=== PATIENT | male | born 1985 | race Caucasian/White ===

== ENCOUNTER 2017-01-01 22:48 | Inpatient (IN) | payer BC ==
[~2017-01-01] VITALS: Ht 175.3 cm; Wt 70.8 kg
--- NOTE | ~2017-01-01 | HP ---
Unit #: [id number] #: [id number] Patient: FALLON MARINA [id number] [address] [place], [place] [address] [id number] I MR#: [id number] NAME: FALLON MARINA. ROOM: 305 Age: 31 Sex: M Admission Date: 01/02/2017 : 1985 Attending Physician: Kathi Monge M.D. Primary Care Physician: No Primary Care Physician HISTORY AND PHYSICAL CHIEF COMPLAINT Chief complaint on presentation to the other facility is profound fatigueness. REASON FOR TRANSFER Chemotherapy. HISTORY OF PRESENT ILLNESS This is a very pleasant 31-year-old male with no past medical history prior to this admission, who presented to the emergency room at [facility] with profound fatigueness and hemoglobin of 5. Patient underwent a bone marrow biopsy that was consistent with T-cell lymphoma, so patient was transferred to our facility for chemotherapy. Patient denied any fever, chills, or night sweats. He is coughing mainly at night but it is very minimum. He denied any chest pain, nausea, vomiting, or diarrhea. He still has some tenderness and discomfort from the bone marrow biopsy, otherwise he is asymptomatic. His heart rate sometimes gets tachycardic, but he related that to anxiety and part of it probably was from anemia. PAST MEDICAL HISTORY T-cell lymphoma. PAST SURGICAL HISTORY Bone marrow biopsy. FAMILY HISTORY None. SOCIAL HISTORY Patient drinks alcohol socially. He is currently a smoker, but he quit a couple weeks ago. No history of drug abuse. ALLERGIES Zosyn. REVIEW OF SYSTEMS A 12-point review of system was obtained and was negative except for what was mentioned in the HPI. PHYSICAL EXAMINATION GENERAL: The patient is in no acute distress. VITAL SIGNS: Heart rate 93, blood pressure 112/62, respiratory rate 22, O2 saturation 98% on room air. Unit #: [id number] #: [id number] Patient: FALLON MARINA HEENT: Atraumatic, normocephalic. PERRLA. EOMI. NECK: Supple. No JVD. No lymphadenopathy. CHEST: Clear to auscultation bilaterally. HEART: S1, S2. No murmur, gallops, or rubs. ABDOMEN: Soft, nontender. Bowel sounds are positive. No hepatosplenomegaly. EXTREMITIES: No edema or cyanosis. SKIN: No rashes. CENTRAL NERVOUS SYSTEM: Awake, alert, oriented x3. No focal motor/sensory deficits. DIAGNOSTIC STUDIES LABORATORY: Creatinine 0.7, sodium 133, chloride 99, glucose 124. White blood count 5.7, hemoglobin 8.3, platelets 83,000. ASSESSMENT 1. T-cell lymphoma. 2. Thrombocytopenia. 3. Acute anemia due to bone marrow underproduction. 4. Smoking. 5. Anxiety. 6. Hyponatremia. PLAN 1. The patient will be watched at [facility] for the next five days for the aggressive course of chemotherapy for T-cell lymphoma. 2. Gentle IV hydration while on chemotherapy. 3. Will discontinue tele and watch closely. 4. Electrolyte replacement. 5. Out of bed to chair and ambulation. 6. Blood transfusion as needed. I would like to thank Dr. Sun for allowing us to be part of this patient's care. Dictated by Kyaw Frazier TD: 01/02/2017 10:43 JOB #: [id number] HISTORY AND PHYSICAL Page 1 of 1 X BESSIE BOLANOS MD X HISTORY AND PHYSICAL
--- NOTE | ~2017-01-01 | CR72 ---
[facility] A Service of [facility] & [facility] RADIOLOGY TEXT RESULTS PATIENT: FALLON MARINA LOCATION: [facility] 305- : 85 UNIT #: [id number] AGE: [address]: Kathi Monge MD SEX: M ORDER DR: [id number] [facility] [address]. [place], [place] [address] [id number] I MR#: [id number] Acc #: [id number] NAME: FALLON MARINA : 1985 SEX: M STUDY DATE/TIME: 01/02/2017 15:45 UNIT: [address] ROOM: [facility] STUDY DESCRIPTION: CR Chest Single View Portable Attending Physician: Kathi Monge M.D. Ordering Physician: Blayne Griffith M.D. Primary Care Physician: Primary Care Physician No MEDICAL IMAGING REPORT This report is preliminary unless electronic signature is present EXAM Portable chest HISTORY Shortness of air with activity, symptoms began 5 days ago. History of lymphoma. COMPARISON 12/28/2016 FINDINGS Portable view of the chest demonstrates an indwelling venous access port overlying the left chest, distal tip mid SVC. No focal airspace disease or effusions. No infiltrates. Heart, mediastinum, great vessels and bony thorax appear normal. Overall, no acute findings. Dictated by... Sarita Villa M.D. THIS IS AN ELECTRONICALLY VERIFIED REPORT Sarita Villa M.D. at 01/04/2017 8:06 AM MARIUM/gabi TD: 01/03/2017 00:17 JOB #: [id number] MEDICAL IMAGING REPORT Page 1 of 1 COPY
[2017-01-01] MEDS ORDERED: HYDROXYZINE HCL25 M1 PO (23:41)
[2017-01-01] MEDS ORDERED: DEPO-MEDRO40 MG/1 ML (23:43)
[2017-01-02 04:55] LABS: HEMATOCRIT 22.9 % (38.0-50.0); HEMOGLOBIN 8.3 gm/dL (13.0-16.0); MEAN CELL VOLUME 90.4 FL (83-96); MEAN CORPUSCULAR HEMOGLOBIN 32.9 PG (28-34); MEAN CORPUSCULAR HGB CONC 36.3 g/dL (30-36); MEAN PLATELET VOLUME 8.5 FL (6.5-11.5); RED BLOOD COUNT 2.53 X10e (3.90-5.60); RED CELL DISTRIBUTION WIDTH 13.7 % (11.0-15.5); WHITE BLOOD COUNT 5.7 X10e3 (4.0-10.5)
[2017-01-02 05:42] LABS: BUN/CREATININE RATIO 27.14; CALCIUM SERUM 8.6 mg/dL (8.4-10.2); CREATININE SERUM 0.7 mg/dL (0.6-1.4); GLOM FILT RATE Estimated 125.8 mL/min (>60); POTASSIUM 4.5 mmol/L (3.5-5.1)
[2017-01-03 07:00] LABS: BILIRUBIN,TOTAL 0.7 mg/dL (0.2-2.0); BUN/CREATININE RATIO 28.33; CALCIUM SERUM 8.1 mg/dL (8.4-10.2); CREATININE SERUM 0.6 mg/dL (0.6-1.4); MAGNESIUM 1.7 mg/dL (1.6-3.0); POTASSIUM 4.3 mmol/L (3.5-5.1); PROTEIN TOTAL SERUM 5.9 g/dL (6.0-8.3)
[2017-01-03 08:02] LABS: HEMATOCRIT 17.3 % (38.0-50.0); MEAN CORPUSCULAR HEMOGLOBIN 33.6 PG (28-34); RED BLOOD COUNT 1.85 X10e (3.90-5.60); WHITE BLOOD COUNT 4.3 X10e3 (4.0-10.5)
[2017-01-03 08:10] LABS: HEMOGLOBIN 6.2 gm/dL (13.0-16.0)
[2017-01-03 08:11] LABS: MEAN CELL VOLUME 93.5 FL (83-96)
[2017-01-03 10:21] LABS: HEMATOCRIT 16.4 % (38.0-50.0); MEAN CELL VOLUME 93.1 FL (83-96); MEAN CORPUSCULAR HEMOGLOBIN 33.7 PG (28-34); MEAN PLATELET VOLUME 8.6 FL (6.5-11.5); RED BLOOD COUNT 1.77 X10e (3.90-5.60); RED CELL DISTRIBUTION WIDTH 13.8 % (11.0-15.5); WHITE BLOOD COUNT 4.6 X10e3 (4.0-10.5)
[2017-01-03 10:29] LABS: MEAN CORPUSCULAR HGB CONC 36.2 g/dL (30-36)
[2017-01-04 05:10] LABS: HEMATOCRIT 20.4 % (38.0-50.0); HEMOGLOBIN 7.3 gm/dL (13.0-16.0); MEAN CORPUSCULAR HEMOGLOBIN 34.4 PG (28-34); MEAN CORPUSCULAR HGB CONC 35.9 g/dL (30-36); MEAN PLATELET VOLUME 8.6 FL (6.5-11.5); RED BLOOD COUNT 2.12 X10e (3.90-5.60); RED CELL DISTRIBUTION WIDTH 14.1 % (11.0-15.5); WHITE BLOOD COUNT 4.5 X10e3 (4.0-10.5)
[2017-01-04 05:26] LABS: BILIRUBIN,TOTAL 1.5 mg/dL (0.2-2.0); CALCIUM SERUM 7.9 mg/dL (8.4-10.2); CREATININE SERUM 0.6 mg/dL (0.6-1.4); MAGNESIUM 2.5 mg/dL (1.6-3.0); POTASSIUM 4.8 mmol/L (3.5-5.1)
[2017-01-05 05:35] LABS: HEMATOCRIT 22.7 % (38.0-50.0); HEMOGLOBIN 7.8 gm/dL (13.0-16.0); MEAN CORPUSCULAR HEMOGLOBIN 29.6 PG (28-34); MEAN CORPUSCULAR HGB CONC 34.3 g/dL (30-36); MEAN PLATELET VOLUME 8.4 FL (6.5-11.5); RED BLOOD COUNT 2.62 X10e (3.90-5.60); RED CELL DISTRIBUTION WIDTH 14.4 % (11.0-15.5); WHITE BLOOD COUNT 4.3 X10e3 (4.0-10.5)
[2017-01-05 05:36] LABS: MEAN CELL VOLUME 86.4 FL (83-96)
[2017-01-05 05:54] LABS: ALBUMIN SERUM 3.1 g/dL (3.5-5.0); BILIRUBIN,TOTAL 0.7 mg/dL (0.2-2.0); BUN/CREATININE RATIO 27.14; CALCIUM SERUM 8.2 mg/dL (8.4-10.2); CREATININE SERUM 0.7 mg/dL (0.6-1.4); GLOM FILT RATE Estimated 125.8 mL/min (>60); POTASSIUM 4.5 mmol/L (3.5-5.1); PROTEIN TOTAL SERUM 6.2 g/dL (6.0-8.3)
[2017-01-06 09:14] LABS: BASOPHIL% 0.4 % (0-2.5); EOSINOPHIL% 0.1 % (0.0-7.0); HEMATOCRIT 19.2 % (38.0-50.0); LYMPHOCYTE# 1.7 X10e3 (1.0-3.5); LYMPHOCYTE% 42.2 % (17.0-45.0); MEAN CORPUSCULAR HEMOGLOBIN 32.6 PG (28-34); MEAN CORPUSCULAR HGB CONC 35.8 g/dL (30-36); MEAN PLATELET VOLUME 7.8 FL (6.5-11.5); MONOCYTE# 0.1 X10e3 (0-1.0); MONOCYTE% 3.5 % (3.0-12.0); NEUTROPHIL# 2.2 X10e3 (1.5-7.1); NEUTROPHIL% 53.8 % (40-75); PLATELET COUNT 107 X10e3 (140-420); RED CELL DISTRIBUTION WIDTH 13.9 % (11.0-15.5); WHITE BLOOD COUNT 4.1 X10e3 (4.0-10.5)
[2017-01-06 09:17] LABS: HEMOGLOBIN 6.9 gm/dL (13.0-16.0)
[2017-01-06 09:18] LABS: DIFF IND YES; MEAN CELL VOLUME 91.1 FL (83-96)
[2017-01-06 10:50] LABS: MICROCYTOSIS SL; PLATELET ESTIMATE DECREASED (NORMAL)
[2017-01-06 10:51] LABS: ANISOCYTOSIS SL
[2017-01-12] MEDS ORDERED: ZOFRAN PO (12:34)
[2017-01-12] MEDS ORDERED: OXYCODON-ACETA1 EAC1 PO (23:40)
[2017-02-20] MEDS ORDERED: CLOBETASOL PROP30 GM (03:00)
[2017-02-20] MEDS ORDERED: LASIX PO (08:22)
[2017-02-20] MEDS ORDERED: HYDROCODON-ACE1 EAC5 PO (08:23)
[2017-02-20] MEDS ORDERED: FOLIC ACID1 MG PO (12:04)
[2017-02-20] MEDS ORDERED: B-121000 MC1 PO (12:05)
[2017-02-20] MEDS ORDERED: OMEPRAZOLE40 M1 PO (12:34)
[2017-02-20] MEDS ORDERED: AMBIEN PO (14:12)
[2017-02-20] MEDS ORDERED: HYDROXYZINE HCL25 M1 PO (14:15)
[2017-02-20] MEDS ORDERED: XANAX0.5 M1 PO (23:40)
[2017-03-01] MEDS ORDERED: MAGNESIUM250 M1 PO (10:41)
[2017-03-01] MEDS ORDERED: CIPRO PO (10:41)
[2017-03-01] MEDS ORDERED: KCL PO (10:41)
[2017-03-01] MEDS ORDERED: PREDNISONE PO (10:42)
[2017-03-01] MEDS ORDERED: DURAGESIC1 EACH TD (10:43)
[2017-03-01] MEDS ORDERED: ZYLOPRIM PO (10:44)
[2017-03-05] MEDS ORDERED: DURAGESIC1 EAC1 TD (17:03)
== END 2017-01-07 08:47 | disposition home or self-care (01) | DRG 847 ==
LOC: UNDOADMIN 22:48 → C3A PCU 22:48
PROVIDERS: Internal Medicine; Internal Medicine Hematology & Oncology
PROC: 3E01305 Introduction of Other Antineoplastic into Subcutaneous Tissue, Percutaneous Approach (ICD-10-PCS; principal; 2017-01-03)
PROC: 30233N1 Transfusion of Nonautologous Red Blood Cells into Peripheral Vein, Percutaneous Approach (ICD-10-PCS; 2017-01-03)
PROC: 05H333Z Insertion of Infusion Device into Right Innominate Vein, Percutaneous Approach (ICD-10-PCS; 2017-01-03)
PROC: B54MZZA Ultrasonography of Right Upper Extremity Veins, Guidance (ICD-10-PCS; 2017-01-03)
DX: Z51.11 Encounter for antineoplastic chemotherapy (principal); C84.40 Peripheral T-cell lymphoma, not elsewhere classified, unspecified site; D69.6 Thrombocytopenia, unspecified; E87.1 Hypo-osmolality and hyponatremia; D58.9 Hereditary hemolytic anemia, unspecified; F17.210 Nicotine dependence, cigarettes, uncomplicated; F41.9 Anxiety disorder, unspecified
CPT/HCPCS: 71010; 80048; 80053; 82947; 83735; 85025; 85027; 86850; 86870; 86880; 86885; 86900; 86901; 86905; 86922; 86978; J1100; J1200; J1642; J1815; J1940; J2405; J2469; J2920; J3475; J9000; J9070; J9181; J9370; P9016

== ENCOUNTER → 2017-01-07 | Outpatient (CLI) | payer BC ==
[~2017-01-07] MED LIST: AMBIEN PO; B-121000 MC1 PO; CIPRO PO; CLOBETASOL PROP30 GM; DELTASONE20 MG PO; DEPO-MEDRO40 MG/1 ML; DURAGESIC1 EAC1 TD; DURAGESIC1 EACH TD; FOLIC ACID1 MG PO; HYDROCODON-ACE1 EAC5 PO; HYDROXYZINE HCL25 M1 PO; KCL PO; LASIX PO; LASIX20 MG PO; LEVAQUIN750 MG PO; MAGNESIUM200 MG PO; MAGNESIUM250 M1 PO; OMEPRAZOLE40 M1 PO; ONDANSETRON ODT8 MG; OXYCODON-ACETA1 EAC1 PO; PREDNISONE PO; XANAX0.5 M1 PO; ZOFRAN PO; ZYLOPRIM PO
== END | disposition home or self-care (01) ==
LOC: CSSDAY 08:48
DX: Z51.12 Encounter for antineoplastic immunotherapy (principal); C84.40 Peripheral T-cell lymphoma, not elsewhere classified, unspecified site; D69.6 Thrombocytopenia, unspecified
CPT/HCPCS: 96377; J2505

== ENCOUNTER → 2017-01-12 | Outpatient (CLI) | payer BC | END | disposition home or self-care (01) | LOC: CSSDAY 11:37 → CPACUOF 11:52 → CSSDAY 15:00 | DX: D64.9 Anemia, unspecified (principal); C85.90 Non-Hodgkin lymphoma, unspecified, unspecified site | CPT/HCPCS: 36415; 36430; 86850; 86885; 86900; 86901; 86922; J1200; J1642; J1940; P9016 ==

== ENCOUNTER → 2017-01-18 | Outpatient (CLI) | payer BC | END | disposition home or self-care (01) | LOC: CLAB 14:43 | DX: D64.9 Anemia, unspecified (principal) | CPT/HCPCS: 36415; 86850; 86860; 86870; 86880; 86885; 86900; 86901; 86922; 86970; 86978 ==

== ENCOUNTER → 2017-01-19 | Outpatient (CLI) | payer BC ==
--- NOTE | ~2017-01-19 | DS ---
Unit #: [id number] #: [id number] Patient: FALLON MARINA JR [id number] [address] [address] [id number] O MR#: [id number] NAME: FALLON MARINA JR ROOM: Age: Sex: M Admission Date: 01/19/2017 : 1985 Discharge Date: Attending Physician: Hollie Sun M.D., Ph.D. Referring Physician: Marta Sun M.D. Primary Care Physician: Hollie Sun M.D., Ph.D. DISCHARGE SUMMARY DISCHARGE DIAGNOSES 1. Lymphoma. 2. Anemia. 3. Thrombocytopenia. The patient was admitted for chemotherapy. Has T-cell lymphoma, doing well. Will be discharged home as per hematology recommendation. VITAL SIGNS: Temperature 98, pulse 87, respirations 12, blood pressure 122/75. NEUROLOGICAL: Awake, alert, oriented. No neuro deficit. HEENT: PERRLA. NECK: Supple. No JVD. CHEST: Bilateral air entry, bilateral mild rhonchi. GI: Nontender, soft. Bowel sounds positive. EXTREMITIES: No edema. SKIN: No rashes, no ulcers. LYMPHATIC: No lymphadenopathy. DIAGNOSTIC STUDIES Labs and imaging has been reviewed. DISCHARGE MEDICATIONS As per Med Rec. Hemodynamically stable. Follow with hematology. Dictated by... Kyaw Berg/ania TD: 01/20/2017 12:10 JOB #: [id number] Unit #: [id number] #: [id number] Patient: FALLON MARINA JR DISCHARGE SUMMARY Page 1 of 1 X Kathi Monge MD X DISCHARGE SUMMARY
== END | disposition home or self-care (01) ==
LOC: CSSDAY 07:20
DX: D64.9 Anemia, unspecified (principal); C85.90 Non-Hodgkin lymphoma, unspecified, unspecified site; Z79.899 Other long term (current) drug therapy
CPT/HCPCS: 36430; J1200; J1642; J1940; J2405; P9016

== ENCOUNTER 2017-01-24 21:43 | Inpatient (IN) | payer BC ==
[~2017-01-24] VITALS: Ht 177.8 cm; Wt 75.0 kg
--- NOTE | ~2017-01-24 | OR ---
Unit #: [id number] #: [id number] Patient: FALLON MARINA JR [id number] [address] [place], [place] [address] [id number] I MR#: [id number] NAME: FALLON MARINA JR ROOM: [facility] Date of Procedure: 01/26/2017 Admission Date: 01/25/2017 Surgeon: Bessie Gutiérrez M.D. : 1985 Attending Physician: Kathi Monge M.D. Primary Care Physician: Hollie Sun M.D., Ph.D. PROCEDURE OPERATIVE NOTE PREOPERATIVE DIAGNOSIS T-cell lymphoma with pneumonia. POSTOPERATIVE DIAGNOSIS T-cell lymphoma with pneumonia. PREMEDICATIONS 1. Fentanyl 100 mcg IV x1. 2. Versed 9 mg IV. 3. Benadryl 50 mg IV. 4. Phenergan 25 mg IV. COMPLICATIONS None. DESCRIPTION OF PROCEDURE An informed consent was obtained from the patient himself after explaining the benefit and risks of this procedure. The patient was prepped and positioned in a proper way in the endoscopy unit. He was premedicated first with fentanyl, Versed, and after numbing his throat with lidocaine spray, a bronchoscope was advanced through the oral cavity and at the level of the vocal cords 2% lidocaine was instilled x6 mL. Then, the bronchoscope was advanced through the vocal cord into the trachea which appeared normal with no masses or excessive secretions. However, at the level of the lupe thin layers of irritated mucosa was noted at the lupe into the right main bronchus. Excessive secretions was noted at the level of the right lower lobe and right middle lobe which was aspirated and bronchoalveolar lavage was obtained from the right lower lobe. The right upper lobe, right lower lobe, and right middle lobe were examined. Then the bronchoscope was retracted and re-advanced into the left main bronchus and the left upper lobe lingula and left lower lobe were examined which appeared normal with no excessive secretions. The bronchoscope was retracted to the level of the lupe and brush was inserted and samples were obtained from the mucosa at the level of the lupe and then right lower lobe. The bronchoscope was retracted out then and patient tolerated his procedure well with no immediate complications. The patient is being watched at the time of dictation in the endoscopy recovery room. Dictated by... Unit #: [id number] #: [id number] Patient: FALLON MARINA JR, M.D. EA/ch TD: 01/26/2017 10:42 JOB #: [id number] PROCEDURE OPERATIVE NOTE Page 1 of 1 X BESSIE BOLANOS MD X PROCEDURE OPERATIVE NOTE
--- NOTE | ~2017-01-24 | DS ---
Unit #: [id number] #: [id number] Patient: FALLON MARINA JR [id number] [address] [address] [id number] I MR#: [id number] NAME: FALLON MARINA JR ROOM: 316 Age: 31 Sex: M Admission Date: 01/25/2017 : 1985 Discharge Date: 01/29/2017 Attending Physician: Kathi Monge M.D. Primary Care Physician: Hollie Sun M.D., Ph.D. DISCHARGE SUMMARY ADMITTING DIAGNOSES 1. Severe sepsis secondary to pneumonia. 2. Healthcare-associated pneumonia. DISCHARGE DIAGNOSES 1. Healthcare-associated pneumonia. 2. T-cell lymphoma. 3. Acute on chronic anemia due to hemolysis. 4. Hemolytic anemia. 5. Thrombocytopenia. 6. Anxiety. PRESS CLIPPER Dr. Griffith/Dr. Tovar - Oncology. PROCEDURE Bronchoscopy. DISPOSITION Home. DISCHARGE CONDITION Stable. HISTORY OF PRESENT ILLNESS This is a 31-year-old male who is well known to our service from previous admission with current history of T-cell lymphoma, undergoing chemotherapy who presented to the emergency room with severe sepsis and healthcare-associated pneumonia. Patient was admitted to the Intensive Care Unit for 24 hours, then was transferred to the floor in a stable condition. He was resuscitated with IV hydration per sepsis guidelines and his Lasix was held the first 24 hours. The patient was started on vancomycin, cefepime and azithromycin for pneumonia. He underwent bronchoscopy which was negative for any pathogens. His antibiotics were de-escalated to Levaquin on discharge and he was going to finish seven days. He needs a chest x-ray in two to three weeks to evaluate for any empyema and to ensure resolution of the pneumonia. Unit #: [id number] #: [id number] Patient: FALLON MARINA JR The patient was transfused with blood and immunoglobulin multiple times during his admission. Oncology is following as an outpatient. DISCHARGE MEDICATIONS 1. Levaquin 750 mg p.o. daily x7 days. 2. Prednisone 40 mg p.o. daily per oncology. 3. Zofran 4 mg p.r.n. 4. Hydroxyzine 25 mg twice daily p.r.n. 5. Ambien 5 mg p.o. at bedtime as needed. 6. Xanax 0.5 twice daily p.r.n. 7. Lasix 20 mg p.o. daily. 8. Oxycodone/acetaminophen 7.5/325 q.i.d. p.r.n. 9. Omeprazole 40 mg p.o. daily. Dictated by... Kyaw Frazier TD: 01/29/2017 10:57 JOB #: [id number] DISCHARGE SUMMARY Page 1 of 1 X BESSIE BOLANOS MD X DISCHARGE SUMMARY
--- NOTE | ~2017-01-24 | CR72 ---
[facility] A Service of [facility] & [facility] RADIOLOGY TEXT RESULTS PATIENT: FALLON MARINA JR LOCATION: [facility] 316-01 : [birth year] UNIT #: [id number] AGE: [address]: Kathi Monge MD SEX: M ORDER DR: [id number] [facility] [address] [place], [place] [address] [id number] I MR#: [id number] Acc #: [id number] NAME: FALLON MARINA JR : 1985 SEX: M STUDY DATE/TIME: 01/25/2017 5:50 UNIT: [facility] ROOM: [facility] STUDY DESCRIPTION: CR Chest Single View Portable Attending Physician: Kathi Monge M.D. Ordering Physician: Kathi Monge M.D. Primary Care Physician: Hollie Sun M.D., Ph.D. MEDICAL IMAGING REPORT This report is preliminary unless electronic signature is present EXAM Portable chest. HISTORY Shortness of air, fever, weakness, onset 01/24/2017. COMPARISON 01/24/1979 FINDINGS Portable view of the chest demonstrates indwelling venous access port overlying the left chest. Distal tip mid SVC. Increasing right perihilar, right infrahilar infiltrate. Right-sided volume loss. Small amount of left basilar atelectasis. Heart, mediastinum unremarkable. No sizeable effusion. No pneumothorax. Dictated by... Sarita Villa M.D. THIS IS AN ELECTRONICALLY VERIFIED REPORT Sarita Villa M.D. at 01/25/2017 4:03 PM MARIUM/katina TD: 01/25/2017 10:44 JOB #: [id number] MEDICAL IMAGING REPORT Page 1 of 1 COPY
--- NOTE | ~2017-01-24 | HP ---
Unit #: [id number] #: [id number] Patient: FALLON MARINA JR [id number] [address] [address] [id number] I MR#: [id number] NAME: FALLON MARINA JR ROOM: [facility] Age: 31 Sex: M Admission Date: 01/25/2017 : 1985 Attending Physician: Kathi Monge M.D. Primary Care Physician: Hollie Sun M.D., Ph.D. HISTORY AND PHYSICAL REASON FOR ADMISSION Shortness of breath and cough. HISTORY OF PRESENT ILLNESS This is a very pleasant 31-year-old male with a past medical history significant for T-cell lymphoma diagnosed recently, currently on chemotherapy, who presented to the emergency room with productive cough, shortness of breath and feeling ill for the last 24 hours. The patient is currently on chemotherapy and is due for a new course today. Yesterday morning, he woke up with some scratchy throat that progressed later on to more sore throat and every time he eats or drinks. He was feeling short winded and he started spiking high fever so finally patient decided to present to the emergency room. Upon presentation, his blood pressure was okay but he was very tachycardic and tachypneic. His fever was up to 101. He denies any nausea, vomiting or diarrhea. PAST MEDICAL HISTORY 1. T-cell lymphoma. 2. Thrombocytopenia. 3. Anemia. 4. Ex-smoker. 5. Anxiety. PAST SURGICAL HISTORY Bone marrow biopsy. FAMILY HISTORY None. SOCIAL HISTORY The patient drinks alcohol socially. He quit smoking a few months ago. No history of drug abuse. ALLERGIES Zosyn. REVIEW OF SYSTEMS Twelve point review of systems were obtained and were negative except for what was mentioned in the HPI. PHYSICAL EXAMINATION GENERAL: The patient is in no acute distress. VITAL SIGNS: Currently, heart rate is 116. It was up to 135. Unit #: [id number] #: [id number] Patient: FALLON MARINA JR Respiratory rate 17, O2 saturation 98% on room air. HEENT: Atraumatic, normocephalic. PERRLA, EOMI. NECK: Supple. No JVD, no lymphadenopathy. CHEST: Bilateral fine rhonchi at the bases. HEART: S1, S2. No murmur, gallops or rubs. ABDOMEN: Soft, nontender. Bowel sounds positive. No hepatosplenomegaly. EXTREMITIES: No edema or cyanosis. SKIN: No rashes. LINER ASSEMBLER: Awake, alert, oriented x3. No focal motor/sensory deficit. DIAGNOSTIC STUDIES LABORATORY: Creatinine 0.7, calcium 7.0, magnesium 1.4, white blood count 7.2, hemoglobin 5.2, platelet 85. IMAGING: Chest x-ray is consistent with right sided pneumonia. ASSESSMENT 1. Severe sepsis. 2. Hospital-acquired pneumonia, Gram-negative/MRSA. 3. T-cell lymphoma. 4. Thrombocytopenia. 5. Acute on chronic anemia, likely hemolytic. 6. Ex-smoker. 7. Anxiety. 8. Hypomagnesemia. PLAN 1. Will keep patient on IV hydration and monitor his urine output and lactic acid. 2. Broad spectrum antibiotics pending culture. Bronchoscopy in the morning. 3. Bronchodilator, mucolytic and anti-tussive. 4. Streptococcus and Legionella antigen test. 5. Blood transfusion. 6. Out of bed to chair and ambulation. Dictated by Kyaw Frazier TD: 01/25/2017 10:34 JOB #: [id number] HISTORY AND PHYSICAL Page 1 of 1 X BESSIE BOLANOS MD HISTORY AND PHYSICAL
--- NOTE | ~2017-01-24 | CO ---
Unit #: [id number] #: [id number] Patient: DAQUAN JUNE JR [id number] [address] [place], [place] [address] [id number] MR#: [id number] NAME: DAQUAN JUNE JR ROOM: 316 Age: 31 Sex: M Admission Date: 01/25/2017 : 1985 Attending Physician: Kathi Monge M.D. Primary Care Physician: Hollie Sun M.D., Ph.D. Requesting Physician: Osiris Gutiérrez M.D. Consultation Date: 01/25/2017 CONSULTATION REPORT REASON FOR CONSULTATION Severe anemia and history of peripheral T-cell lymphoma. HISTORY OF PRESENT ILLNESS Mr. Daquan June is 31 years old, known to me from most previous admission for dose-adjusted EPOCH chemotherapy. He was scheduled to start his chemotherapy second cycle today but yesterday, Sunday, developed a scratchy throat followed thereafter with cough and feeling profoundly weak. He checked his temperature, was found to be 101 and presented thereafter to the emergency room at [facility]. Chest x-ray revealed bilateral pneumonia and was admitted for further evaluation. Hemoglobin at time of admission was 4.1 and he was transfused two units of packed cells with a CBC pending. He feels slightly better today. He has been started on broad spectrum antibiotics for healthcare-associated pneumonia. PAST MEDICAL HISTORY Peripheral T-cell lymphoma diagnosed during a complicated hospitalization with patient in [facility] following which he was transferred to [place] on 01/02/2017 for cycle one of chemotherapy with dose-adjusted EPOCH. He had 15 units of packed cells in [facility] and currently has had 11 units of packed cells so far. No significant past medical problems. PAST SURGICAL HISTORY 1. Bone marrow biopsy and aspiration. 2. MediPort placement. FAMILY HISTORY Negative for cancer. SOCIAL HISTORY Quit smoking a few weeks ago. Used to smoke a pack a day. Used to drink alcohol which is also discontinued. He is a having two tours of [place] and one of [place]. REVIEW OF SYSTEMS 14-point review of systems taken. CONSTITUTIONAL: As discussed. EYES: Negative. EARS, NOSE, MOUTH AND THROAT: Scratchy throat. CARDIOVASCULAR: Negative. RESPIRATORY: Shortness of breathing, cough with some expectoration. No hemoptysis. Unit #: [id number] #: [id number] Patient: DAQUAN JUNE JR GASTROINTESTINAL: Negative. GENITOURINARY: Negative. NEUROLOGICAL: Negative. ALLERGIC/LYMPHATIC: Negative. MUSCULOSKELETAL: Negative. SKIN: Negative. PHYSICAL EXAMINATION GENERAL: He is a pleasant, middle age man, awake, alert, oriented x3. VITAL SIGNS: Temperature is 99.8, pulse rate 114, respiratory rate 18, blood pressure 101/52. T-max is 101.6. HEENT: Pupils equal, react well to light. He is very pale but not icteric. Mucous membranes are moist. No adenopathy, JVD, thyromegaly. CARDIOVASCULAR SYSTEM: First and second heart sounds heard. Mild tachycardia. LUNGS: Chest expansion symmetric with normal breath sounds. ABDOMEN: Soft, nontender. Bowel sounds active. Spleen tip could be felt. EXTREMITIES: Warm with good pulses. No edema, cyanosis, clubbing. NEUROLOGICAL: He is awake, alert, oriented x3 with no focal findings. SKIN: Negative. LYMPHATIC: Negative. DIAGNOSTIC STUDIES LABORATORY: Lactic acid 1.7. BMP showed a BUN of 9, creatinine 0.7, magnesium is 1.5. CBC with white count of 7, hemoglobin 4.4, MCV is 106.6, platelet count is 85,000. IMAGING: CT scan of the abdomen - cholecystostomy. There is some decrease in size of his lymph nodes. However, spleen is large and currently measuring 18.5 cm, previously 17.8 cm, likely related to hemolysis. ASSESSMENT AND PLAN Mr. Daquan Juen is 31 years old with a history of peripheral T-cell lymphoma, who started chemotherapy on 01/02/2017 for his dose-adjusted EPOCH cycle one and is scheduled to start cycle 2 of chemotherapy on 01/25/2017. He is now admitted with pneumonia which is hospital-acquired and has been treated as such. I discussed the situation with patient and Dr. Gutiérrez who plans to do a bronchoscopy to look for opportunistic infections. Discussed further that plans will include: 1) Check CBC with transfusion of two additional units of packed cells for hemoglobin less than 7; 2) haptoglobin retic count; 3) consider IVIG based upon ongoing hemolysis for transfusion support. I have agreed with broad spectrum antibiotic to cover hospital-acquired pneumonia. Thank you for allowing me to participate in his care. Dictated by... Harsha Tovar M.D. [facility]/ania Unit #: [id number] #: [id number] Patient: LAINA COUGHLINDAQUAN OMA TD: 01/26/2017 06:13 JOB #: [id number] CONSULTATION REPORT Page 1 of 1 X Harsha Tovar MD X CONSULTATION REPORT
--- NOTE | ~2017-01-24 | CT2 ---
[facility] A Service of [facility] & [facility] RADIOLOGY TEXT RESULTS PATIENT: FALLON MARINA JR LOCATION: [facility] 316-01 : [birth year] UNIT #: [id number] AGE: [address]: Kathi Monge MD SEX: M ORDER DR: [id number] [facility] [address] [place], [place] [address] [id number] I MR#: [id number] Acc #: [id number] NAME: FALLON MARINA JR : 1985 SEX: M STUDY DATE/TIME: 01/25/2017 01:10 UNIT: [facility] ROOM: [facility] STUDY DESCRIPTION: CT Abd and Pelv W Cont Attending Physician: Kathi Monge M.D. Ordering Physician: Ye Hart M.D. Primary Care Physician: Hollie Sun M.D., Ph.D. MEDICAL IMAGING REPORT This report is preliminary unless electronic signature is present EXAM CT abdomen and pelvis 01/25 at 01:10 INDICATIONS Weakness and fever for 1 day with nausea, vomiting and cough. History of lymphoma. TECHNIQUE Axial images were obtained through the abdomen and pelvis following IV contrast administration. Multiplanar reformats were obtained. This CT exam was performed with one or more of the following radiation dose reduction techniques: Automatic exposure control, adjustment of mA and/or kV according to patient size, and iterative reconstruction. COMPARISON Comparison is made with 12/16/2016. FINDINGS Abdomen: Trace right pleural effusion is improved. There is a small left effusion slightly worsened. Infiltrates are noted in both lower lobes, left greater than right, compatible with pneumonia. The spleen measures about 18.5 cm in craniocaudal length, previously 17.8 cm. Nonobstructing stone again seen in the right kidney. Solid organs are otherwise within normal limits. Scattered retroperitoneal and abdominal lymph nodes are again seen. Many of these are slightly smaller. For example, there is a portacaval lymph node previously measuring 1.5 cm short axis. It now measures 1 cm. An aortocaval lymph node previously measuring 1 cm short axis, now measures 8 mm. There is a trace amount of free fluid. Mild ileus pattern suspected in the small bowel. GI tract is otherwise grossly normal. Pelvis: Urinary bladder is normal. There is a trace amount of free fluid. Appendix surgically absent. The GI tract is otherwise STS. [facility] A Service of [facility] RADIOLOGY TEXT RESULTS PATIENT: FALLON MARINA JR LOCATION: A 316-01 : [birth year] UNIT #: [id number] AGE: [address]: Kathi Monge MD SEX: M ORDER DR: unremarkable. There is scattered prominent but nonpathologically enlarged pelvic lymph nodes which are not appreciably changed. IMPRESSION 1. Bilateral lower lobe pneumonia, left greater than right. There also a small effusions left greater than right. 2. Progressive splenomegaly. 3. Slight improvement in adenopathy compatible with lymphoma. See reference measurements above. 4. Mild ileus pattern in the small bowel. 5. Appendectomy. 6. Trace amount of free fluid in the abdomen and pelvis. Dictated by... Ye Holguin Jr., M.D. THIS IS AN ELECTRONICALLY VERIFIED REPORT Ye Holguin Jr., M.D. at 01/26/2017 12:52 AM KODI/katina TD: 01/25/2017 07:34 JOB #: [id number] MEDICAL IMAGING REPORT Page 1 of 1 COPY
--- NOTE | ~2017-01-24 | CR72 ---
[facility] A Service of [facility] & [facility] RADIOLOGY TEXT RESULTS PATIENT: FALLON MARINA JR LOCATION: [facility] 316-01 : 85 UNIT #: [id number] AGE: [address]: Kathi Monge MD SEX: M ORDER DR: [id number] [facility] [address] [place], [place] [address] [id number] I MR#: [id number] Acc #: [id number] NAME: FALLON MARINA : 1985 SEX: M STUDY DATE/TIME: 01/24/2017 22:34 UNIT: [facility] ROOM: [facility] STUDY DESCRIPTION: CR Chest Single View Portable Attending Physician: Kathi Monge M.D. Ordering Physician: Ye Hart M.D. Primary Care Physician: Hollie Sun M.D., Ph.D. MEDICAL IMAGING REPORT This report is preliminary unless electronic signature is present EXAM Portable chest 01/24 at 22:34. INDICATIONS Shortness of air, fever and weakness today. Patient is on chemotherapy for leukemia. FINDINGS AP portable chest compared to 01/02/2017. Cardiac and mediastinal contours are normal. The left side Port-A-Cath remains in good position. The right lung is clear. There is some patchy infiltrate behind the heart at the left base. No pneumothorax. IMPRESSION Patchy infiltrate behind the heart at the left base may reflect atelectasis or pneumonia. Chest x-ray is otherwise negative for acute disease. Dictated by... Ye Holguin Jr., M.D. THIS IS AN ELECTRONICALLY VERIFIED REPORT Ye Holguin Jr., M.D. at 01/26/2017 12:50 AM KODI/katina TD: 01/25/2017 06:01 JOB #: [id number] MEDICAL IMAGING REPORT Page 1 of 1 COPY
--- NOTE | ~2017-01-24 | EKG ---
PATIENT: FALLON MARINA UNIT #: [id number] Ventricular Rate: 125 BPM Atrial Rate: 125 BPM P-R Interval: 150 ms QRS Duration: 94 ms Q-T Interval: 292 ms QTC Calculation(Bezet): 421 ms P Hamilton: 64 degrees Calculated R Hamilton: 51 degrees Calculated T Hamilton: 58 degrees Diagnosis Line: Sinus tachycardia Diagnosis Line: Otherwise normal ECG Diagnosis Line: No previous ECGs available Diagnosis Line: Confirmed by SHARATH RUIZ MD ([id number]) on 01/25/2017 Diagnosis Line: 6:48:57 PM INTERPRETING MD: JOSEPH BENITEZ
[~2017-01-24 21:43] MED LIST changes: -AMBIEN PO; -B-121000 MC1 PO; -CIPRO PO; -CLOBETASOL PROP30 GM; -DELTASONE20 MG PO; -DURAGESIC1 EAC1 TD; -DURAGESIC1 EACH TD; -FOLIC ACID1 MG PO; -HYDROCODON-ACE1 EAC5 PO; -KCL PO; -LASIX PO; -LASIX20 MG PO; -LEVAQUIN750 MG PO; -MAGNESIUM200 MG PO; -MAGNESIUM250 M1 PO; -OMEPRAZOLE40 M1 PO; -ONDANSETRON ODT8 MG; -PREDNISONE PO; -XANAX0.5 M1 PO; -ZYLOPRIM PO
[2017-01-24 23:11] LABS: BASOPHIL# 0.3 X10e3 (0-0.3); BASOPHIL% 4.5 % (0-2.5); HEMATOCRIT 12.7 % (38.0-50.0); LYMPHOCYTE# 2.4 X10e3 (1.0-3.5); LYMPHOCYTE% 33.1 % (17.0-45.0); MEAN CELL VOLUME 106.9 FL (83-96); MEAN CORPUSCULAR HEMOGLOBIN 43.5 PG (28-34); MEAN CORPUSCULAR HGB CONC 40.7 g/dL (30-36); MEAN PLATELET VOLUME 7.7 FL (6.5-11.5); MONOCYTE# 0.7 X10e3 (0-1.0); MONOCYTE% 9.9 % (3.0-12.0); NEUTROPHIL# 3.8 X10e3 (1.5-7.1); NEUTROPHIL% 52.5 % (40-75); PLATELET COUNT 97 X10e3 (140-420); RED BLOOD COUNT 1.19 X10e (3.90-5.60); RED CELL DISTRIBUTION WIDTH 16.2 % (11.0-15.5); WHITE BLOOD COUNT 7.2 X10e3 (4.0-10.5)
[2017-01-24 23:16] LABS: DIFF IND YES; HEMOGLOBIN 5.2 gm/dL (13.0-16.0)
[2017-01-24 23:27] LABS: URINE SOURCE CLEAN CATCH
[2017-01-24 23:33] LABS: URINE APPEARANCE CLEAR; URINE BILIRUBIN NEG (NEG); URINE BLOOD NEG (NEG); URINE COLOR YELLOW; URINE GLUCOSE NEG (NEG); URINE KETONE NEG (NEG); URINE LEUKOCYTE ESTERASE NEG (NEG); URINE NITRATE NEG (NEG); URINE PH 7.5 (5-8); URINE PROTEIN 1+ (NEG); URINE SPECIFIC GRAVITY 1.019 (1.003-1.035)
[2017-01-24 23:34] LABS: ANISOCYTOSIS SL; PLATELET ESTIMATE DECREASED (NORMAL)
[2017-01-24 23:35] LABS: URBCS1 AUWI 0-2 /[HPF] (0-2); URINE BACTERIA AUWI NEG (NEGATIVE); URINE SQUAMOUS EPITHELIAL CELL NONE SEEN /[HPF]; UWBCS1 AUWI 0-2 (0-5)
[2017-01-24 23:35] LABS: HYPOCHROMIA MOD; ROULEAUX SLIGHT
[2017-01-24 23:36] LABS: CULTURE INDICATED? NO
[2017-01-24 23:40] LABS: ALBUMIN SERUM 2.6 g/dL (3.5-5.0); BILIRUBIN, DIRECT 0.1 mg/dL (0.0-0.2); BILIRUBIN,INDIRECT 0.5 mg/dL (0.0-0.9); BILIRUBIN,TOTAL 0.6 mg/dL (0.2-2.0); BUN/CREATININE RATIO 12.85; CALCIUM SERUM 7.8 mg/dL (8.4-10.2); CREATININE SERUM 0.7 mg/dL (0.6-1.4); GLOM FILT RATE Estimated 125.8 mL/min (>60); MAGNESIUM 1.5 mg/dL (1.6-3.0); POTASSIUM 3.6 mmol/L (3.5-5.1); PROTEIN TOTAL SERUM 6.8 g/dL (6.0-8.3)
[2017-01-25] MEDS ORDERED: OXYCODON-ACETA1 EAC1 PO (02:59)
[2017-01-25] MEDS ORDERED: LASIX20 MG PO (03:01)
[2017-01-25] MEDS ORDERED: ONDANSETRON ODT8 MG (03:03)
[2017-01-25] MEDS ORDERED: DELTASONE20 MG PO (03:08)
[2017-01-25 03:59] LABS: BASOPHIL% 0.7 % (0-2.5); HEMATOCRIT 11.2 % (38.0-50.0); LYMPHOCYTE# 2.5 X10e3 (1.0-3.5); LYMPHOCYTE% 35.1 % (17.0-45.0); MEAN CELL VOLUME 106.6 FL (83-96); MEAN CORPUSCULAR HEMOGLOBIN 41.6 PG (28-34); MEAN PLATELET VOLUME 7.8 FL (6.5-11.5); MONOCYTE# 0.9 X10e3 (0-1.0); MONOCYTE% 12.1 % (3.0-12.0); NEUTROPHIL# 3.7 X10e3 (1.5-7.1); NEUTROPHIL% 52.1 % (40-75); PLATELET COUNT 85 X10e3 (140-420); RED BLOOD COUNT 1.05 X10e (3.90-5.60); RED CELL DISTRIBUTION WIDTH 15.4 % (11.0-15.5)
[2017-01-25 04:03] LABS: DIFF IND NO; HEMOGLOBIN 4.4 gm/dL (13.0-16.0)
[2017-01-25 04:17] LABS: ALBUMIN SERUM 2.3 g/dL (3.5-5.0); BILIRUBIN,TOTAL 0.5 mg/dL (0.2-2.0); BUN/CREATININE RATIO 14.28; CREATININE SERUM 0.7 mg/dL (0.6-1.4); GLOM FILT RATE Estimated 125.8 mL/min (>60); MAGNESIUM 1.4 mg/dL (1.6-3.0); POTASSIUM 3.9 mmol/L (3.5-5.1); PROTEIN TOTAL SERUM 6.3 g/dL (6.0-8.3)
[2017-01-25 11:00] LABS: BASOPHIL% 0.4 % (0-2.5); HEMATOCRIT 15.4 % (38.0-50.0); LYMPHOCYTE# 2.4 X10e3 (1.0-3.5); LYMPHOCYTE% 27.1 % (17.0-45.0); MEAN CORPUSCULAR HEMOGLOBIN 44.7 PG (28-34); MONOCYTE% 10.8 % (3.0-12.0); NEUTROPHIL# 5.6 X10e3 (1.5-7.1); NEUTROPHIL% 61.7 % (40-75); PLATELET COUNT 88 X10e3 (140-420); RED BLOOD COUNT 1.48 X10e (3.90-5.60); RED CELL DISTRIBUTION WIDTH 15.3 % (11.0-15.5); RETICULOCYTE 0.3 % (0.5-2.8)
[2017-01-25 11:03] LABS: DIFF IND NO; HEMOGLOBIN 6.6 gm/dL (13.0-16.0)
[2017-01-26 06:57] LABS: BASOPHIL% 0.6 % (0-2.5); HEMATOCRIT 19.9 % (38.0-50.0); LYMPHOCYTE# 2.2 X10e3 (1.0-3.5); LYMPHOCYTE% 30.1 % (17.0-45.0); MEAN CORPUSCULAR HEMOGLOBIN 29.6 PG (28-34); MEAN CORPUSCULAR HGB CONC 34.1 g/dL (30-36); MEAN PLATELET VOLUME 8.1 FL (6.5-11.5); MONOCYTE# 0.8 X10e3 (0-1.0); MONOCYTE% 11.4 % (3.0-12.0); NEUTROPHIL# 4.2 X10e3 (1.5-7.1); NEUTROPHIL% 57.9 % (40-75); PLATELET COUNT 83 X10e3 (140-420); RED CELL DISTRIBUTION WIDTH 15.5 % (11.0-15.5); WHITE BLOOD COUNT 7.2 X10e3 (4.0-10.5)
[2017-01-26 07:03] LABS: HEMOGLOBIN 6.8 gm/dL (13.0-16.0); MEAN CELL VOLUME 86.8 FL (83-96)
[2017-01-26 07:04] LABS: DIFF IND NO
[2017-01-26 08:40] LABS: LEGIONELLA AG URINE NEG (NEG)
[2017-01-26 11:12] LABS: BF TOTAL NUCLEATED CELL COUNT 397 CMM (0-100); BODY FLUID APPEARANCE HAZY; BODY FLUID RBC <10000 CMM; BODY FLUID SOURCE BAL
[2017-01-26 20:55] LABS: HEMATOCRIT 21.9 % (38.0-50.0)
[2017-01-26 20:56] LABS: HEMOGLOBIN 9.5 gm/dL (13.0-16.0)
[2017-01-27 07:00] LABS: BASOPHIL% 0.4 % (0-2.5); EOSINOPHIL% 0.1 % (0.0-7.0); HEMATOCRIT 23.8 % (38.0-50.0); HEMOGLOBIN 8.1 gm/dL (13.0-16.0); LYMPHOCYTE# 1.3 X10e3 (1.0-3.5); LYMPHOCYTE% 20.3 % (17.0-45.0); MEAN CELL VOLUME 87.2 FL (83-96); MEAN CORPUSCULAR HEMOGLOBIN 29.7 PG (28-34); MEAN CORPUSCULAR HGB CONC 34.1 g/dL (30-36); MEAN PLATELET VOLUME 8.1 FL (6.5-11.5); MONOCYTE# 1.1 X10e3 (0-1.0); MONOCYTE% 17.1 % (3.0-12.0); NEUTROPHIL% 62.1 % (40-75); PLATELET COUNT 78 X10e3 (140-420); RED BLOOD COUNT 2.73 X10e (3.90-5.60); RED CELL DISTRIBUTION WIDTH 15.5 % (11.0-15.5); WHITE BLOOD COUNT 6.4 X10e3 (4.0-10.5)
[2017-01-27 07:02] LABS: DIFF IND NO
[2017-01-27 07:08] LABS: BUN/CREATININE RATIO 18.57; CALCIUM SERUM 7.4 mg/dL (8.4-10.2); CREATININE SERUM 0.7 mg/dL (0.6-1.4); GLOM FILT RATE Estimated 125.8 mL/min (>60); POTASSIUM 3.6 mmol/L (3.5-5.1)
[2017-01-28 08:16] LABS: ALBUMIN SERUM 2.2 g/dL (3.5-5.0); BILIRUBIN,TOTAL 0.7 mg/dL (0.2-2.0); BUN/CREATININE RATIO 12.5; CALCIUM SERUM 7.8 mg/dL (8.4-10.2); CREATININE SERUM 0.8 mg/dL (0.6-1.4); GLOM FILT RATE Estimated 119.1 mL/min (>60); POTASSIUM 3.3 mmol/L (3.5-5.1); PROTEIN TOTAL SERUM 7.9 g/dL (6.0-8.3)
[2017-01-28 09:59] LABS: BASOPHIL% 0.4 % (0-2.5); EOSINOPHIL% 0.2 % (0.0-7.0); HEMATOCRIT 23.7 % (38.0-50.0); HEMOGLOBIN 8.5 gm/dL (13.0-16.0); LYMPHOCYTE# 2.1 X10e3 (1.0-3.5); LYMPHOCYTE% 28.3 % (17.0-45.0); MEAN CORPUSCULAR HEMOGLOBIN 32.5 PG (28-34); MEAN CORPUSCULAR HGB CONC 35.7 g/dL (30-36); MEAN PLATELET VOLUME 8.2 FL (6.5-11.5); MONOCYTE# 1.2 X10e3 (0-1.0); MONOCYTE% 15.8 % (3.0-12.0); NEUTROPHIL# 4.2 X10e3 (1.5-7.1); NEUTROPHIL% 55.3 % (40-75); PLATELET COUNT 91 X10e3 (140-420); RED BLOOD COUNT 2.61 X10e (3.90-5.60); RED CELL DISTRIBUTION WIDTH 15.9 % (11.0-15.5); WHITE BLOOD COUNT 7.6 X10e3 (4.0-10.5)
[2017-01-28 10:03] LABS: DIFF IND YES
[2017-01-28 11:45] LABS: ANISOCYTOSIS SL; PLATELET ESTIMATE DECREASED (NORMAL); ROULEAUX SLIGHT
[2017-01-29 07:17] LABS: BUN/CREATININE RATIO 13.75; CALCIUM SERUM 7.7 mg/dL (8.4-10.2); CREATININE SERUM 0.8 mg/dL (0.6-1.4); GLOM FILT RATE Estimated 119.1 mL/min (>60); MAGNESIUM 1.3 mg/dL (1.6-3.0); POTASSIUM 3.4 mmol/L (3.5-5.1)
[2017-01-29 07:29] LABS: HEMATOCRIT 18.9 % (38.0-50.0); HEMOGLOBIN 7.1 gm/dL (13.0-16.0); MEAN CORPUSCULAR HEMOGLOBIN 35.3 PG (28-34); MEAN CORPUSCULAR HGB CONC 37.4 g/dL (30-36); MEAN PLATELET VOLUME 8.2 FL (6.5-11.5); RED CELL DISTRIBUTION WIDTH 14.9 % (11.0-15.5); WHITE BLOOD COUNT 7.1 X10e3 (4.0-10.5)
[2017-01-29 07:30] LABS: MEAN CELL VOLUME 94.5 FL (83-96)
[2017-01-29 07:33] LABS: RETICULOCYTE 0.1 % (0.5-2.8)
[2017-01-29] MEDS ORDERED: LEVAQUIN750 MG PO (17:18)
[2017-01-30 23:59] LABS: IMMUNOGLOBULIN A 331 mg/dL (81-463); IMMUNOGLOBULIN E 2756 kU/L (<=114); IMMUNOGLOBULIN G 1787 mg/dL (694-1618); IMMUNOGLOBULIN M 798 mg/dL (48-271)
[2017-02-20] MEDS ORDERED: CLOBETASOL PROP30 GM (03:00)
[2017-02-20] MEDS ORDERED: LASIX PO (08:22)
[2017-02-20] MEDS ORDERED: HYDROCODON-ACE1 EAC5 PO (08:23)
[2017-02-20] MEDS ORDERED: FOLIC ACID1 MG PO (12:04)
[2017-02-20] MEDS ORDERED: B-121000 MC1 PO (12:05)
[2017-02-20] MEDS ORDERED: OMEPRAZOLE40 M1 PO (12:34)
[2017-02-20] MEDS ORDERED: AMBIEN PO (14:12)
[2017-02-20] MEDS ORDERED: HYDROXYZINE HCL25 M1 PO (14:15)
[2017-02-20] MEDS ORDERED: XANAX0.5 M1 PO (23:40)
[2017-03-01] MEDS ORDERED: MAGNESIUM250 M1 PO (10:41)
[2017-03-01] MEDS ORDERED: CIPRO PO (10:41)
[2017-03-01] MEDS ORDERED: KCL PO (10:41)
[2017-03-01] MEDS ORDERED: PREDNISONE PO (10:42)
[2017-03-01] MEDS ORDERED: DURAGESIC1 EACH TD (10:43)
[2017-03-01] MEDS ORDERED: ZYLOPRIM PO (10:44)
[2017-03-05] MEDS ORDERED: DURAGESIC1 EAC1 TD (17:03)
== END 2017-01-29 17:36 | disposition home or self-care (01) | DRG 853 ==
LOC: CED 21:43 → CICCU3 01-25 00:42 → C3A PCU 01-25 00:42 → CEDOF 01-25 00:42 → CICCU3 01-25 01:56 → C3A PCU 01-25 14:09
PROVIDERS: Emergency Medicine; Internal Medicine; Internal Medicine Hematology & Oncology; Internal Medicine Medical Oncology; Internal Medicine Pulmonary Disease
PROC: 30233N1 Transfusion of Nonautologous Red Blood Cells into Peripheral Vein, Percutaneous Approach (ICD-10-PCS; 2017-01-25)
PROC: 0B9F8ZX Drainage of Right Lower Lung Lobe, Via Natural or Artificial Opening Endoscopic, Diagnostic (ICD-10-PCS; principal; 2017-01-26 08:00)
PROC: 0BB68ZX Excision of Right Lower Lobe Bronchus, Via Natural or Artificial Opening Endoscopic, Diagnostic (ICD-10-PCS; 2017-01-26 08:00)
DX: A41.9 Sepsis, unspecified organism (principal); J18.9 Pneumonia, unspecified organism; C85.90 Non-Hodgkin lymphoma, unspecified, unspecified site; D58.9 Hereditary hemolytic anemia, unspecified; E83.42 Hypomagnesemia; D69.6 Thrombocytopenia, unspecified; F41.9 Anxiety disorder, unspecified; Z87.891 Personal history of nicotine dependence; R65.20 Severe sepsis without septic shock
CPT/HCPCS: 36415; 36430; 71010; 74177; 80048; 80053; 80076; 80200; 80202; 81003; 82728; 82784; 82785; 82947; 83010; 83605; 83735; 84132; 85014; 85018; 85025; 85027; 85044; 86850; 86900; 86901; 86905; 86922; 87040; 87070; 87102; 87106; 87116; 87205; 87206; 87252; 87254; 87278; 87449; 87493; 87899; 88104; 88108; 88305; 88312; 89051; 93005; 94640; 94760; 96361; 96365; 96375; 99285; J0171; J0456; J0692; J1200; J1568; J1642; J1940; J2250; J2405; J2550; J3010; J3260; J3370; J3475; P9016; Q9967

== ENCOUNTER → 2017-02-06 | Outpatient (CLI) | payer BC ==
[~2017-02-06] MED LIST changes: +AMBIEN PO; +B-121000 MC1 PO; +CIPRO PO; +CLOBETASOL PROP30 GM; +DELTASONE20 MG PO; +DURAGESIC1 EAC1 TD; +DURAGESIC1 EACH TD; +FOLIC ACID1 MG PO; +HYDROCODON-ACE1 EAC5 PO; +KCL PO; +LASIX PO; +LASIX20 MG PO; +LEVAQUIN750 MG PO; +MAGNESIUM200 MG PO; +MAGNESIUM250 M1 PO; +OMEPRAZOLE40 M1 PO; +ONDANSETRON ODT8 MG; +PREDNISONE PO; +XANAX0.5 M1 PO; +ZYLOPRIM PO
== END | disposition home or self-care (01) ==
LOC: CLAB 11:34
DX: D64.81 Anemia due to antineoplastic chemotherapy (principal); T45.1X1D Poisoning by antineoplastic and immunosuppressive drugs, accidental (unintentional), subsequent encounter; C85.90 Non-Hodgkin lymphoma, unspecified, unspecified site; D49.9 Neoplasm of unspecified behavior of unspecified site
CPT/HCPCS: 36415; 86850; 86900; 86901; 86922

== ENCOUNTER → 2017-02-07 | Outpatient (CLI) | payer BC | END | disposition home or self-care (01) | LOC: CSSDAY 08:00 | DX: Z51.11 Encounter for antineoplastic chemotherapy (principal); C85.90 Non-Hodgkin lymphoma, unspecified, unspecified site; D64.9 Anemia, unspecified | CPT/HCPCS: 36430; J1200; J1940; J2405; P9016 ==

== ENCOUNTER 2017-02-08 08:12 | Inpatient (IN) | payer BC ==
[~2017-02-08] VITALS: Ht 172.7 cm; Wt 65.8 kg
--- NOTE | ~2017-02-08 | HP ---
Unit #: [id number] #: [id number] Patient: DAQUAN JUNE JR [id number] [address] [address] [id number] I MR#: [id number] NAME: DAQUAN JUNE JR ROOM: 323 Age: 31 Sex: M Admission Date: 02/08/2017 : 1985 Attending Physician: Osiris Gutiérrez M.D. Primary Care Physician: Christiano Reno M.D. HISTORY AND PHYSICAL CHIEF COMPLAINT Admitted for cycle 2 of chemotherapy with dose-adjusted EPOCH for T-cell lymphoma. HISTORY OF PRESENT ILLNESS Mr. 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 The second cycle of chemotherapy had to be delayed because of pneumonia. At time of admission, Mr. June tells me that he has been feeling reasonably well. He continues to be fatigued with occasional chills, rare night sweats. PAST MEDICAL HISTORY Peripheral T-cell lymphoma diagnosed at time of a complicated hospitalization at [facility] and underwent cycle 1 of chemotherapy at [facility] on January 02, 2017. He has had multiple units of packed cells for his -associated hemolytic anemia with more than 30 units so far. No other significant past medical problems. PAST SURGICAL HISTORY 1. Bone marrow biopsy and aspiration. 2. MediPort placement. FAMILY HISTORY Negative for cancer. SOCIAL HISTORY Quit smoking at the time of diagnosis of lymphoma. Smoked a pack a day. Also discontinued alcohol at the same time. He is a . REVIEW OF SYSTEMS 14-point review of systems taken. CONSTITUTIONAL: Fatigue, tired. EYES: Negative. EARS, NOSE, MOUTH AND THROAT: Negative. CARDIOVASCULAR: Negative. RESPIRATORY: No shortness of breathing. No cough or expectoration. GASTROINTESTINAL: Negative. GENITOURINARY: Negative. NEUROLOGIC: Negative. ALLERGIC/LYMPHATIC/SKIN: Negative. MUSCULOSKELETAL: Some back pain. Unit #: [id number] #: [id number] Patient: DAQUAN JUNE JR PSYCHIATRIC: Negative. PHYSICAL EXAMINATION GENERAL: On examination, he is a pleasant man, awake, alert and oriented x3. VITAL SIGNS: Admission temperature 979.8, pulse is 112, respiratory rate 18, blood pressure 136/78. He weighs 154 pounds with a BMI of 33. HEENT: Pupils equal, react well to light. Pale but not icteric. Mucous membranes are moist. No adenopathy, JVD, thyromegaly. CARDIOVASCULAR SYSTEM: First and second heart sounds heard. No murmurs, gallops, rubs. LUNGS: Chest expansion symmetric, bilaterally clear with normal breath sounds. ABDOMEN: Soft, nontender. Spleen is palpable below the costal margin. Bowel sounds are active. EXTREMITIES: Warm with good pulses. No edema, cyanosis, clubbing. NEUROLOGICAL EXAMINATION: He is awake, alert, oriented x3 with no focal findings. PSYCHIATRIC: Normal affect. SKIN: Negative. LYMPHATIC: Palpable lymph nodes. DIAGNOSTIC STUDIES LABORATORY: Labs - CBC with white count 7.5, hemoglobin 5.6, MCV of 103.4, platelets 145,000. Fasting metabolic panel shows BUN of 18, creatinine is 0.9, eGFR of 113.4. Protime is 12.1, INR 1.1, PTT is 28 seconds. ASSESSMENT AND PLAN Mr. Daquan June is 31 years old with a history of peripheral T-cell lymphoma specifically admitted with severe anemia for cycle 2 of chemotherapy with dose-adjusted EPOCH. Chemotherapy and side effects have been discussed in detail with Mr. June and previous admissions with Neulasta in the office as an outpatient after discharge. I recommended packed cell transfusions for the severe anemia and will continue to monitor CBC with transfusions as necessary during this hospital stay. He will also require adequate evaluation following this cycle of chemotherapy, as well as restaging after cycle 2 and cycle 3 is performed. Dictated by Kyaw Neves TD: 02/11/2017 13:24 JOB #: [id number] Unit #: [id number] #: [id number] Patient: DAQUAN JUNE JR HISTORY AND PHYSICAL Page 1 of 1 X Harsha Tovar MD X HISTORY AND PHYSICAL
--- NOTE | ~2017-02-08 | CR63 ---
[facility] A Service of [facility] & [facility] RADIOLOGY TEXT RESULTS PATIENT: FALLON MARINA JR LOCATION: [facility] 323-01 : [birth year] UNIT #: [id number] AGE: [address]: BESSIE ORONA MD SEX: M ORDER DR: [id number] [facility] [address] [place], [place] [address] [id number] I MR#: [id number] Acc #: [id number] NAME: FALLON MARINA JR : 1985 SEX: M STUDY DATE/TIME: 02/08/2017 15:41 UNIT: [address] ROOM: [facility] STUDY DESCRIPTION: CR Chest 2 View Attending Physician: Bessie Orona Ordering Physician: Harsha Tovar M.D. Primary Care Physician: Christiano Reno M.D. MEDICAL IMAGING REPORT This report is preliminary unless electronic signature is present EXAM Chest, PA and lateral, 02/08/2017. HISTORY Shortness of breath for 2 weeks and pneumonia. History of lymphoma and chemotherapy. Smoking history. FINDINGS The cardiac and mediastinal structures are stable compared with 01/25/2017. Left subclavian MediPort catheter tip remains in the superior vena cava. There is no pneumothorax. Interval resolution of the right perihilar pneumonia. Interval decrease in the infiltrate at the left lung base. Lungs are otherwise clear. There are no pleural effusions. IMPRESSION Resolution of the right perihilar pneumonia compared with 01/25/2017. Interval decrease in the infiltrate at the left lung base. Dictated by... Lance Diamond M.D. THIS IS AN ELECTRONICALLY VERIFIED REPORT Lance Diamond M.D. at 02/09/2017 7:56 AM SHARON/steve TD: 02/08/2017 22:20 JOB #: [id number] MEDICAL IMAGING REPORT Page 1 of 1 COPY
--- NOTE | ~2017-02-08 | HP ---
Unit #: [id number] #: [id number] Patient: FALLON MARINA JR [id number] [address] [place], [place] [address] [id number] I MR#: [id number] NAME: FALLON MARINA JR ROOM: 323 Age: 31 Sex: M Admission Date: 02/08/2017 : 1985 Attending Physician: Bessie Gutiérrez M.D. Primary Care Physician: Christiano Reno M.D. HISTORY AND PHYSICAL REVISED REPORT DATE OF SERVICE 02/09/2017 REASON FOR ADMISSION Chemotherapy. HISTORY OF PRESENT ILLNESS This is a very pleasant 31-year-old male with a past medical history significant for T-cell lymphoma diagnosed recently who was admitted to the hospital for chemotherapy treatment. Of note, patient was just discharged from the hospital recently after an admission for pneumonia. He has been doing fine with no fever, cough or shortness of breath. PAST MEDICAL HISTORY 1. T-cell lymphoma. 2. Thrombocytopenia. 3. Anemia. 4. Ex-smoker. 5. Anxiety. PAST SURGICAL HISTORY 1. Bone marrow biopsy. FAMILY HISTORY None. SOCIAL HISTORY Patient drinks alcohol socially. He quit smoking a few months ago. No history of drug abuse. ALLERGY Zosyn. REVIEW OF SYSTEMS 12-point review of system were obtained and were negative except for what was mentioned in the HPI. PHYSICAL EXAM GENERAL: The patient is in no acute distress. Unit #: [id number] #: [id number] Patient: FALLON MARINA JR VITAL SIGNS: Blood pressure 110/62, respiratory rate 18, O2 saturation 98% on room air. HEENT: Atraumatic, normocephalic. PERRLA, EOMI. NECK: Supple. No JVD, no lymphadenopathy. CHEST: Clear to auscultation bilaterally. HEART: S1, S2. No murmur or gallops or rubs. ABDOMEN: Soft, nontender. Bowel sound is positive. No hepatosplenomegaly. EXTREMITIES: No edema or cyanosis. SKIN: No rashes. [employer]OR: Awake, alert, oriented x3. No focal motor/sensory deficit. LABS AND OTHER TESTS Creatinine 0.7, sodium 132, bicarb 26, white blood count 8.4, hemoglobin 5.6, platelet 145. ASSESSMENT 1. T-cell lymphoma. 2. Acute on chronic anemia due to hemolysis. 3. Thrombocytopenia. 4. Anxiety. 5. Ex-smoker. PLAN 1. Patient is hemodynamically stable on room air. 2. Chemotherapy will be initiated per oncology. 3. Blood transfusion to keep hemoglobin above 5. 4. Chest x-ray noted and viewed and compared to x-ray from last admission and patient has complete resolution of the previous pneumonia. 5. DVT and GI prophylaxis. I would like to thank Dr. Tovar for allowing me to be part of this patient care. *REPORT TYPE MODIFIED* Dictated by Kyaw Frazier TD: 02/11/2017 10:09 JOB #: [id number] HISTORY AND PHYSICAL Page 1 of 1 X BESSIE BOLANOS MD X HISTORY AND PHYSICAL
--- NOTE | ~2017-02-08 | DS ---
Unit #: [id number] #: [id number] Patient: FALLON MARINA JR [id number] [address] [address] [id number] I MR#: [id number] NAME: FALLON MARINA JR ROOM: 323 Age: 31 Sex: M Admission Date: 02/08/2017 : 1985 Discharge Date: 02/13/2017 Attending Physician: Bessie Gutiérrez M.D. Primary Care Physician: Christiano Reno M.D. DISCHARGE SUMMARY ADMITTING DIAGNOSES T-cell lymphoma needing treatment. DISCHARGE DIAGNOSES 1. T-cell lymphoma. 2. Hemolytic anemia. 3. Acute on chronic anemia secondary to hemolysis. 4. Thrombocytopenia. 5. Ex-smoker. 6. Anxiety. 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 Tovar. BRIEF HOSPITAL COURSE This is a very pleasant, 31-year-old male with past medical history of T-cell lymphoma that was diagnosed recently, who was admitted from Dr. Tovar's office for chemotherapy. The patient received five days of chemotherapy with no complication. Throughout his stay, he was noted to be anemic multiple times and he received multiple units of packed red cells. The patient will be discharged today and follow up with Dr. Tovar as an outpatient. DISCHARGE MEDICATION 1. Zofran 4 mg p.r.n. 2. Hydroxyzine 25 mg twice daily. 3. Ambien 5 mg at bedtime p.r.n. 4. Xanax 0.5 mg p.o. b.i.d. p.r.n. 5. Lasix 20 mg p.o. daily. 6. Oxycodone/acetaminophen 7.5/325 mg q.i.d. p.r.n. 7. Omeprazole 40 mg p.o. daily. Dictated by... Bessie Gutiérrez M.D. EA/katina TD: 02/13/2017 14:05 JOB #: [id number] Unit #: [id number] #: [id number] Patient: FALLON MARINA JR DISCHARGE SUMMARY Page 1 of 1 X BESSIE BOLANOS MD DISCHARGE SUMMARY
--- NOTE | ~2017-02-08 | DS ---
Unit #: [id number] #: [id number] Patient: FALLON JUNE JR [id number] [address] [place], [place] [address] [id number] I MR#: [id number] NAME: FALLON JUNE JR ROOM: 323 Age: 31 Sex: M Admission Date: 02/08/2017 : 1985 Discharge Date: 02/13/2017 Attending Physician: Osiris Gutiérrez M.D. Primary Care Physician: Christiano Reno M.D. DISCHARGE SUMMARY DISCHARGE MEDICATIONS 1. Clobetasol propionate b.i.d. p.r.n. 2. Ambien 5 mg at bedtime p.r.n. 3. Xanax 0.4 mg b.i.d. XR. 4. Percocet 7.5/325, 1 tablet q.i.d. p.r.n. 5. Omeprazole 40 mg once daily. 6. Folic acid 1 mg once daily. 7. Cyanocobalamin. 8. Vitamin B12 1000 mg once daily. FOLLOWUP INSTRUCTIONS He will followup in the office on 02/14/2017 for Neulasta 6 mg to be given subcu as well as continue monitoring CBCs twice weekly. DISCHARGE DIAGNOSES 1. Peripheral T cell lymphoma, specifically angioimmunoblastic lymphadenopathy with dysproteinemia. 2. (1) . 3. Severe anemia with multiple transfusions secondary to his malignancy. HOSPITAL COURSE AND COMPLICATIONS Please see admission history and physical. DETAILS OF ADMISSION In brief, Mr. June is admitted for second cycle of dose-adjusted EPOCH treatment which he tolerated well and was discharged home after completion of infusion. Received Neulasta 24 hours later. During the admission he required multiple unit transfusion as previously. He was seen in consultation by Dr. Gutiérrez. Chest x-ray was repeated, showed resolution of previous pneumonia. EVALUATION DAY OF DISCHARGE Today, Mr. June tells me he has generally been feeling well. He still continues to have night sweats which have been a problem for the past 3 weeks. REVIEW OF SYSTEMS No fevers, chills. EYES: Negative. EARS, NOSE, MOUTH AND THROAT: Negative. RESPIRATORY: Mild shortness of breathing. No cough. CARDIOVASCULAR: Negative. GASTROINTESTINAL: Negative. GENITOURINARY: Negative. Unit #: [id number] #: [id number] Patient: FALLON JUNE JR MUSCULOSKELETAL: Some mild bony discomfort. NEUROLOGIC: Negative. PHYSICAL EXAMINATION GENERAL: On examination, he is awake, alert, oriented x3. VITAL SIGNS: Temperature 97.6, pulse is 84, respirations 19, blood pressure 159/80. O2 sats 100% on room air. He is awake, alert, oriented x3. HEENT: Pupils are equal, react well to light. No pallor or icterus. Mucous membranes are moist. NECK: No adenopathy, JVD, thyromegaly. CARDIOVASCULAR SYSTEM: First and second heart sounds heard and regular with no murmurs, gallops, rubs. LUNGS: Chest expansion is symmetric bilaterally with normal breath sounds. ABDOMEN: Soft, nontender. Palpable 4 inches from the costal margin slightly tender. EXTREMITIES: Warm with good pulses. No edema, cyanosis, clubbing. NEURO: He is awake, alert and oriented x3 without any focal findings. PSYCHIATRIC: Normal affect. LYMPHATIC: No palpable lymph nodes. DIAGNOSTIC STUDIES LABORATORY: CBC today shows a white count of 5, hemoglobin is 8.6, platelet count is 134,000. Dictated by... Kyaw Neves/ania TD: 02/15/2017 07:13 JOB #: [id number] DISCHARGE SUMMARY Page 1 of 1 X Harsha Tovar MD X DISCHARGE SUMMARY
[~2017-02-08 08:12] MED LIST changes: -AMBIEN PO; -B-121000 MC1 PO; -CIPRO PO; -CLOBETASOL PROP30 GM; -DURAGESIC1 EAC1 TD; -DURAGESIC1 EACH TD; -FOLIC ACID1 MG PO; -HYDROCODON-ACE1 EAC5 PO; -KCL PO; -LASIX PO; -MAGNESIUM200 MG PO; -MAGNESIUM250 M1 PO; -OMEPRAZOLE40 M1 PO; -PREDNISONE PO; -XANAX0.5 M1 PO; -ZYLOPRIM PO
[2017-02-08] MEDS ORDERED: MAGNESIUM200 MG PO (12:04)
[2017-02-08 14:16] LABS: HEMATOCRIT 12.2 % (38.0-50.0); MEAN CELL VOLUME 103.4 FL (83-96); MEAN CORPUSCULAR HEMOGLOBIN 47.9 PG (28-34); MEAN CORPUSCULAR HGB CONC 46.3 g/dL (30-36); MEAN PLATELET VOLUME 7.9 FL (6.5-11.5); RED BLOOD COUNT 1.18 X10e (3.90-5.60); RED CELL DISTRIBUTION WIDTH 14.5 % (11.0-15.5); WHITE BLOOD COUNT 7.5 X10e3 (4.0-10.5)
[2017-02-08 14:18] LABS: HEMOGLOBIN 5.6 gm/dL (13.0-16.0)
[2017-02-08 14:32] LABS: CALCIUM SERUM 7.9 mg/dL (8.4-10.2); CREATININE SERUM 0.9 mg/dL (0.6-1.4); GLOM FILT RATE Estimated 113.4 mL/min (>60); POTASSIUM 3.7 mmol/L (3.5-5.1)
[2017-02-08 15:13] LABS: INR 1.1; PROTHROMBIN TIME (PATIENT) 12.1 SECONDS (10.0-11.7)
[2017-02-08 15:31] LABS: ALBUMIN SERUM 2.4 g/dL (3.5-5.0); BILIRUBIN,TOTAL 0.8 mg/dL (0.2-2.0); BUN/CREATININE RATIO 18.88; CALCIUM SERUM 7.7 mg/dL (8.4-10.2); CREATININE SERUM 0.9 mg/dL (0.6-1.4); GLOM FILT RATE Estimated 113.4 mL/min (>60); POTASSIUM 3.7 mmol/L (3.5-5.1); PROTEIN TOTAL SERUM 6.7 g/dL (6.0-8.3)
[2017-02-09 05:48] LABS: HEMATOCRIT 10.7 % (38.0-50.0); MEAN CELL VOLUME 102.3 FL (83-96); MEAN CORPUSCULAR HEMOGLOBIN 67.2 PG (28-34); MEAN CORPUSCULAR HGB CONC 65.7 g/dL (30-36); MEAN PLATELET VOLUME 8.4 FL (6.5-11.5); RED BLOOD COUNT 1.04 X10e (3.90-5.60); RED CELL DISTRIBUTION WIDTH 14.1 % (11.0-15.5); WHITE BLOOD COUNT 8.3 X10e3 (4.0-10.5)
[2017-02-09 06:01] LABS: ALBUMIN SERUM 2.5 g/dL (3.5-5.0); BILIRUBIN,TOTAL 0.9 mg/dL (0.2-2.0); BUN/CREATININE RATIO 27.14; CALCIUM SERUM 7.8 mg/dL (8.4-10.2); CREATININE SERUM 0.7 mg/dL (0.6-1.4); GLOM FILT RATE Estimated 125.8 mL/min (>60); MAGNESIUM 1.9 mg/dL (1.6-3.0); PHOSPHOROUS 3.5 mg/dL (2.5-4.6); POTASSIUM 4.9 mmol/L (3.5-5.1); PROTEIN TOTAL SERUM 6.8 g/dL (6.0-8.3)
[2017-02-10 06:50] LABS: BUN/CREATININE RATIO 25.71; CALCIUM SERUM 7.9 mg/dL (8.4-10.2); CREATININE SERUM 0.7 mg/dL (0.6-1.4); GLOM FILT RATE Estimated 125.8 mL/min (>60); POTASSIUM 4.2 mmol/L (3.5-5.1)
[2017-02-10 07:52] LABS: HEMATOCRIT 22.6 % (38.0-50.0); HEMOGLOBIN 8.1 gm/dL (13.0-16.0); MEAN CELL VOLUME 90.8 FL (83-96); MEAN CORPUSCULAR HEMOGLOBIN 32.6 PG (28-34); MEAN CORPUSCULAR HGB CONC 35.9 g/dL (30-36); MEAN PLATELET VOLUME 7.7 FL (6.5-11.5); RED BLOOD COUNT 2.48 X10e (3.90-5.60); WHITE BLOOD COUNT 8.4 X10e3 (4.0-10.5)
[2017-02-11 06:42] LABS: HEMOGLOBIN 7.7 gm/dL (13.0-16.0); MEAN CELL VOLUME 88.7 FL (83-96); MEAN CORPUSCULAR HEMOGLOBIN 30.9 PG (28-34); MEAN CORPUSCULAR HGB CONC 34.8 g/dL (30-36); MEAN PLATELET VOLUME 7.7 FL (6.5-11.5); RED BLOOD COUNT 2.48 X10e (3.90-5.60); RED CELL DISTRIBUTION WIDTH 14.7 % (11.0-15.5); WHITE BLOOD COUNT 7.5 X10e3 (4.0-10.5)
[2017-02-12 08:15] LABS: HEMATOCRIT 21.8 % (38.0-50.0); MEAN CELL VOLUME 85.9 FL (83-96); MEAN CORPUSCULAR HEMOGLOBIN 31.6 PG (28-34); MEAN CORPUSCULAR HGB CONC 36.8 g/dL (30-36); MEAN PLATELET VOLUME 6.9 FL (6.5-11.5); RED BLOOD COUNT 2.54 X10e (3.90-5.60); RED CELL DISTRIBUTION WIDTH 14.6 % (11.0-15.5); WHITE BLOOD COUNT 6.1 X10e3 (4.0-10.5)
[2017-02-13 06:18] LABS: HEMATOCRIT 24.7 % (38.0-50.0); HEMOGLOBIN 8.6 gm/dL (13.0-16.0); MEAN CELL VOLUME 83.9 FL (83-96); MEAN CORPUSCULAR HEMOGLOBIN 29.2 PG (28-34); MEAN CORPUSCULAR HGB CONC 34.8 g/dL (30-36); MEAN PLATELET VOLUME 7.8 FL (6.5-11.5); RED BLOOD COUNT 2.95 X10e (3.90-5.60); RED CELL DISTRIBUTION WIDTH 14.8 % (11.0-15.5)
[2017-02-20] MEDS ORDERED: CLOBETASOL PROP30 GM (03:00)
[2017-02-20] MEDS ORDERED: LASIX PO (08:22)
[2017-02-20] MEDS ORDERED: HYDROCODON-ACE1 EAC5 PO (08:23)
[2017-02-20] MEDS ORDERED: FOLIC ACID1 MG PO (12:04)
[2017-02-20] MEDS ORDERED: B-121000 MC1 PO (12:05)
[2017-02-20] MEDS ORDERED: OMEPRAZOLE40 M1 PO (12:34)
[2017-02-20] MEDS ORDERED: AMBIEN PO (14:12)
[2017-02-20] MEDS ORDERED: HYDROXYZINE HCL25 M1 PO (14:15)
[2017-02-20] MEDS ORDERED: XANAX0.5 M1 PO (23:40)
[2017-03-01] MEDS ORDERED: KCL PO (10:41)
[2017-03-01] MEDS ORDERED: MAGNESIUM250 M1 PO (10:41)
[2017-03-01] MEDS ORDERED: CIPRO PO (10:41)
[2017-03-01] MEDS ORDERED: PREDNISONE PO (10:42)
[2017-03-01] MEDS ORDERED: DURAGESIC1 EACH TD (10:43)
[2017-03-01] MEDS ORDERED: ZYLOPRIM PO (10:44)
[2017-03-05] MEDS ORDERED: DURAGESIC1 EAC1 TD (17:03)
== END 2017-02-13 13:20 | disposition home or self-care (01) | DRG 847 ==
LOC: C3A PCU 08:12
PROVIDERS: Internal Medicine Hematology & Oncology; Internal Medicine Pulmonary Disease
PROC: 05HB33Z Insertion of Infusion Device into Right Basilic Vein, Percutaneous Approach (ICD-10-PCS; 2017-02-08)
PROC: 30233N1 Transfusion of Nonautologous Red Blood Cells into Peripheral Vein, Percutaneous Approach (ICD-10-PCS; principal; 2017-02-09)
DX: Z51.11 Encounter for antineoplastic chemotherapy (principal); C86.3 Subcutaneous panniculitis-like T-cell lymphoma; D69.6 Thrombocytopenia, unspecified; C85.90 Non-Hodgkin lymphoma, unspecified, unspecified site; D58.9 Hereditary hemolytic anemia, unspecified; Z87.891 Personal history of nicotine dependence; F41.9 Anxiety disorder, unspecified; D64.81 Anemia due to antineoplastic chemotherapy
CPT/HCPCS: 36415; 36430; 71020; 80048; 80053; 82947; 83735; 84100; 85027; 85610; 85730; 86850; 86870; 86900; 86901; 86922; J1100; J1200; J1642; J1650; J1940; J2405; J2469; J9000; J9070; J9181; J9370; P9016

== ENCOUNTER → 2017-02-19 | Outpatient (CLI) | payer BC ==
[~2017-02-19] MED LIST changes: +AMBIEN PO; +B-121000 MC1 PO; +CIPRO PO; +CLOBETASOL PROP30 GM; +DURAGESIC1 EAC1 TD; +DURAGESIC1 EACH TD; +FOLIC ACID1 MG PO; +HYDROCODON-ACE1 EAC5 PO; +KCL PO; +LASIX PO; +MAGNESIUM200 MG PO; +MAGNESIUM250 M1 PO; +OMEPRAZOLE40 M1 PO; +PREDNISONE PO; +XANAX0.5 M1 PO; +ZYLOPRIM PO
== END | disposition home or self-care (01) ==
LOC: CLAB 10:42
DX: C84.48 Peripheral T-cell lymphoma, not elsewhere classified, lymph nodes of multiple sites (principal)
CPT/HCPCS: 36415; 86850; 86885; 86900; 86901; 86905; 86922

== ENCOUNTER → 2017-02-20 | Outpatient (CLI) | payer BC | END | disposition home or self-care (01) | LOC: CSSDAY 07:40 | DX: C84.48 Peripheral T-cell lymphoma, not elsewhere classified, lymph nodes of multiple sites (principal) | CPT/HCPCS: 36430; J1642; J1940; J2405; P9016 ==

== ENCOUNTER → 2017-02-23 | Outpatient (CLI) | payer BC | END | disposition home or self-care (01) | LOC: CSSDAY 12:18 | DX: D64.81 Anemia due to antineoplastic chemotherapy (principal); C85.90 Non-Hodgkin lymphoma, unspecified, unspecified site; C80.1 Malignant (primary) neoplasm, unspecified | CPT/HCPCS: 36415; 36430; 86850; 86900; 86901; 86922; J1200; J1642; J1940; P9016 ==